=== PATIENT | female | born 1985 | race Caucasian/White ===

== ENCOUNTER 2018-05-16 12:47 | Inpatient (IN) | payer MEDICAID, OTHER ==
[2018-05-16] MEDS ORDERED: Iohexol 240 (50 ml) PO STA (13:39)
[2018-05-16] MEDS ORDERED: Sodium Chloride 0.9% 1,000 ML IV ONE (13:39)
--- NOTE | 2018-05-16 13:43 | C.PDOC ---
History Of Present Illness 32 year old female with PMHx of colitis, presents to the ER complaining of epigastric discomfort that began around 9:30am today. Around 11:00am pain began radiating to the right side, and patient noted bloating. No nausea, vomiting, or diarrhea. Patient has had a decreased appetite today. She denies any associated dysuria, frequency, incontinence, constipation, back pain, fever, or chills. LMP was 04/25/18, patient states it was normal. Time Seen by Provider: 05/16/18 13:29 Chief Complaint (Nursing): Abdominal Pain History Per: Patient History/Exam Limitations: no limitations Onset/Duration Of Symptoms: Hrs Current Symptoms Are (Timing): Still Present Location Of Pain/Discomfort: RUQ, Epigastric Abnormal Vaginal Bleeding: No Last Menstral Period: 04/25/18 Past Medical History Reviewed: Historical Data, Nursing Documentation, Vital Signs Vital Signs: Last Vital Signs Temp 98.4 F 05/16/18 14:42 Pulse 73 05/16/18 17:10 Resp 18 05/16/18 17:10 BP 120/74 05/16/18 17:10 Pulse Ox 100 05/16/18 17:26 - Medical History PMH: Arthritis, Back Problems, Gastritis Other PMH: Colitis Surgical History: No Surg Hx Family History: States: Unknown Family Hx - Social History Hx Tobacco Use: No Hx Alcohol Use: Yes Hx Substance Use: No - Immunization History Hx Tetanus Toxoid Vaccination: No Hx Influenza Vaccination: No Hx Pneumococcal Vaccination: No Review Of Systems Except As Marked, All Systems Reviewed And Found Negative. Constitutional: Negative for: Fever, Chills Gastrointestinal: Positive for: Abdominal Pain. Negative for: Nausea, Vomiting , Diarrhea, Constipation Genitourinary: Negative for: Dysuria, Frequency, Incontinence Physical Exam - Physical Exam Appears: Non-toxic, No Acute Distress Skin: Normal Color, Warm, Dry Head: Atraumatic, Normacephalic Eye(s): bilateral: Normal Inspection, PERRL, EOMI Nose: Normal Oral Mucosa: Moist Neck: Normal ROM, Supple Chest: Symmetrical Cardiovascular: Rhythm Regular, No Murmur Respiratory: Normal Breath Sounds, No Accessory Muscle Use, No Wheezing Gastrointestinal/Abdominal: Bowel Sounds (quiet), Tenderness (to the RUQ, epigastrium, and right flank/mid abdomen), Distention, No Guarding, No Rebound Back: Normal Inspection, No CVA Tenderness Extremity: Bilateral: Atraumatic, Normal Color And Temperature, Normal ROM Pulses: Left Dorsalis Pedis: Normal, Right Dorsalis Pedis: Normal Neurological/Psych: Oriented x3, Normal Speech ED Course And Treatment - Laboratory Results Result Diagrams: 05/16/18 14:18 05/16/18 14:18 Lab Interpretation: No Acute Changes Urine POC: Negative O2 Sat by Pulse Oximetry: 100 (RA) Pulse Ox Interpretation: Normal - CT Scan/US Abdomen and pelvis with contrast Other Rad Studies (CT/US): Read By Radiologist, Radiology Report Reviewed CT/US Interpretation: Accession No. : [id number]. Patient Name / ID : JESSU SHELTON / [id number]. Exam Date : 05/16/2018 16:36:22 ( Approved ). Study Comment : Sex / Age : F / 32Y. Creator : Mackenzie Rascon. Dictator : Tyler Rollins MD. Yard Goods Salesperson : Truck Service Technician : Tyler Rollins MD. Approver2 : Report Date : 05/16/2018 16:40:15. My Comment : . Date of service: 05/16/2018. PROCEDURE: CT Abdomen and Pelvis with contrast. HISTORY : abd pain. COMPARISON: CT scan of the abdomen and pelvis dated 06/02/2015. TECHNIQUE: Contrast dose: 100 mL Visipaque 320. Radiation dose: Total exam DLP = 685.0 mGy-cm. This CT exam was performed using one or more of the following dose reduction techniques: Automated exposure control, adjustment of the mA and/or kV according to patient size, and/or use of iterative reconstruction technique. FINDINGS: LOWER THORAX: Unremarkable. LIVER: Hepatic steatosis. No gross lesion or ductal dilatation. GALLBLADDER AND BILE DUCTS: Unremarkable. PANCREAS: Unremarkable. No gross lesion or ductal dilatation. SPLEEN: Unremarkable. ADRENALS: Unremarkable. No mass. KIDNEYS AND URETERS: Unremarkable. No hydronephrosis. No solid mass. VASCULATURE: Unremarkable. No aortic aneurysm. BOWEL: Cecum and terminal ileum noted in the left mid abdomen. No obstruction. No gross mural thickening. APPENDIX: Thickened appendix measuring up to 12 mm without surrounding inflammatory change. Seen in the left mid abdomen extending to the right and inferiorly ( series 3, images 64 -92). PERITONEUM: Unremarkable. No free fluid. No free air. LYMPH NODES: Unremarkable. No enlarged lymph nodes. BLADDER: Unremarkable. REPRODUCTIVE: Unremarkable. BONES: No acute fracture. OTHER FINDINGS: Navel ornamentation. IMPRESSION: Thickened appendix measuring up to 12 mm without surrounding inflammatory change. Findings are equivocal for acute appendicitis. Reevaluation Time: 17:18 Reassessment Condition: Unchanged (Additional Morphine given.) - Physician Consult Information Time Consulting Physician Contacted: 17:18 Physician Contacted: Franco Faith Medical Decision Making Medical Decision Making: Time: 13:39 Initial Plan: --Blood work --Urinalysis --IV fluids --Morphine 2 mg IVP --CT A/P with PO & IV contrast Disposition - Disposition Disposition: HOSPITALIZED Disposition Time: 17:44 Condition: STABLE - POA Present On Arrival: None - Clinical Impression Clinical Impression: Abdominal pain, Appendicitis - Scribe Statement The provider has reviewed the documentation as recorded by the Kelly Mcleod Provider Attestation: All medical record entries made by the Kelly were at my direction and personally dictated by me. I have reviewed the chart and agree that the record accurately reflects my personal performance of the history, physical exam, medical decision making, and the department course for this patient. I have also personally directed, reviewed, and agree with the discharge instructions and disposition.
[2018-05-16 14:31] LABS: BASO # 0.1 K/uL (0.0-0.2); BASO % 0.9 % (0.0-2.0); EOS # 0.2 K/uL (0.0-0.7); HEMOGLOBIN 12.5 g/dL (11.0-16.0); LYMPH % 27.4 % (20.0-40.0); MEAN CELL VOLUME 81.4 fL (81.0-99.0); MEAN CORPUSCULAR HEMOGLOBIN 27.5 pg (27.0-31.0); MEAN CORPUSCULAR HGB CONC 33.8 g/dL (33.0-37.0); MEAN PLATELET VOLUME 7.9 fL (7.2-11.7); MONO # 0.6 K/uL (0.0-0.8); MONO % 7.9 % (0.0-10.0); NEUT # 4.4 K/uL (1.8-7.0); NEUT % 60.8 % (50.0-75.0); RBC 4.55 Mil/uL (3.80-5.20); RED CELL DISTRIBUTION WIDTH 13.1 % (11.5-14.5); WHITE BLOOD COUNT 7.2 K/uL (4.8-10.8)
[2018-05-16] MEDS ORDERED: Iohexol 240 (50 ml) ONE (14:43)
[2018-05-16 14:46] LABS: ALB/GLOB RATIO 1.2 (1.0-2.1); ALBUMIN 4.3 g/dL (3.5-5.0); ALT/SGPT 29 U/L (9-52); AST/SGOT 19 U/L (14-36); BLOOD UREA NITROGEN 12 mg/dL (7-17); CALCIUM 8.8 mg/dl (8.6-10.4); GFR AFRICAN-AMERICAN > 60; GFR NON-AFRICAN AMERICAN > 60; LIPASE 110 U/L (23-300)
[2018-05-16 14:49] LABS: SQUAMOUS EPITHIAL 3 /hpf (0-5); URINE BILIRUBIN NEGATIVE (NEGATIVE); URINE BLOOD 2+ (NEGATIVE); URINE CLARITY Clear (Clear); URINE COLOR Yellow (YELLOW); URINE GLUCOSE (UA) NORMAL (Normal); URINE LEUKOCYTE ESTERASE 1+ Leu/uL (Negative); URINE PROTEIN NEGATIVE (NEGATIVE); URINE UROBILINOGEN NORMAL mg/dL (0.2-1.0)
[2018-05-16 14:50] LABS: HCG,QUALITATIVE URINE NEGATIVE (NEGATIVE)
[2018-05-16] MEDS ORDERED: Iodixanol 320 MG/ML 100 ML BOTTLE IV ONE (16:10)
--- NOTE | 2018-05-16 17:14 | CT ---
Date of service: 05/16/2018 PROCEDURE: CT Abdomen and Pelvis with contrast HISTORY: abd pain COMPARISON: CT scan of the abdomen and pelvis dated 06/02/2015. TECHNIQUE: Contrast dose: 100 mL Visipaque 320 Radiation dose: Total exam DLP = 685.0 mGy-cm. This CT exam was performed using one or more of the following dose reduction techniques: Automated exposure control, adjustment of the mA and/or kV according to patient size, and/or use of iterative reconstruction technique. FINDINGS: LOWER THORAX: Unremarkable. LIVER: Hepatic steatosis. No gross lesion or ductal dilatation. GALLBLADDER AND BILE DUCTS: Unremarkable. PANCREAS: Unremarkable. No gross lesion or ductal dilatation. SPLEEN: Unremarkable. ADRENALS: Unremarkable. No mass. KIDNEYS AND URETERS: Unremarkable. No hydronephrosis. No solid mass. VASCULATURE: Unremarkable. No aortic aneurysm. BOWEL: Cecum and terminal ileum noted in the left mid abdomen. No obstruction. No gross mural thickening. APPENDIX: Thickened appendix measuring up to 12 mm without surrounding inflammatory change. Seen in the left mid abdomen extending to the right and inferiorly (series 3, images 64 -92). PERITONEUM: Unremarkable. No free fluid. No free air. LYMPH NODES: Unremarkable. No enlarged lymph nodes. BLADDER: Unremarkable. REPRODUCTIVE: Unremarkable. BONES: No acute fracture. OTHER FINDINGS: Navel ornamentation. IMPRESSION: Thickened appendix measuring up to 12 mm without surrounding inflammatory change. Findings are equivocal for acute appendicitis.
[2018-05-16] MEDS ORDERED: HYDROmorphone 0.5 mg/0.5 ml ISec IVP PRN ×2 (18:06→20:02)
--- NOTE | 2018-05-16 18:07 | CP.PCM.HP ---
History of Present Illness - History of Present Illness History of Present Illness: H&P for Dr. Faith This is a 32 F with a PMH of colitis, who is presenting today with abdominal pain that was generalized this Am and localized to the RLQ and right back. She reports that she has never felt any pain like this before and that it is different from her colitis. She denies any fevers or chills at home. She denies any nause or vomiting or changes in bowel habits. PMH: See above PSH: Denies ALL: Denies Meds: Denies Social: Denies Vices Present on Admission - Present on Admission Any Indicators Present on Admission: No Review of Systems - Review of Systems All systems: reviewed and no additional remarkable complaints except - Constitutional Constitutional: Anorexia. absent: Chills, Fever - EENT Eyes: absent: Blurred Vision, Change in Vision Ears: absent: Ear Pain, Tinnitus - Cardiovascular Cardiovascular: absent: Chest Pain, Dyspnea - Respiratory Respiratory: absent: Cough, Dyspnea - Gastrointestinal Gastrointestinal: Abdominal Pain, Nausea. absent: Bloating, Diarrhea, Vomiting - Genitourinary Genitourinary: absent: Dysuria, Hematuria - Menstruation Additional comments: Last menses april 25 Past Patient History - Past Social History Smoking Status: Never Smoked - MUSCULOSKELETAL/RHEUMATOLOGICAL Hx Arthritis: Yes - GASTROINTESTINAL Hx Gastritis: Yes - PSYCHIATRIC Hx Substance Use: No - SURGICAL HISTORY Hx Surgeries: No - ANESTHESIA Hx Anesthesia: No Meds Allergies/Adverse Reactions: Allergies Allergy/AdvReac Type Severity Reaction Status Date / Time No Known Allergies Allergy Verified 05/16/18 13:24 Physical Exam - Constitutional Appears: Non-toxic, No Acute Distress - Head Exam Head Exam: ATRAUMATIC, NORMOCEPHALIC - Eye Exam Eye Exam: EOMI, Normal appearance - ENT Exam ENT Exam: Mucous Membranes Moist - Respiratory Exam Respiratory Exam: NORMAL BREATHING PATTERN - Cardiovascular Exam Cardiovascular Exam: +S1, +S2 - GI/Abdominal Exam GI & Abdominal Exam: Soft, Tenderness. absent: Distended, Firm, Guarding, Hernia Additional comments: + Rovsing - Extremities Exam Extremities exam: Positive for: normal inspection - Neurological Exam Neurological exam: Alert, Oriented x3 - Psychiatric Exam Psychiatric exam: Normal Affect, Normal Mood - Skin Skin Exam: Dry, Intact Results - Vital Signs Recent Vital Signs: Last Vital Signs Temp 98.4 F 05/16/18 14:42 Pulse 73 05/16/18 17:10 Resp 18 05/16/18 17:10 BP 120/74 05/16/18 17:10 Pulse Ox 100 05/16/18 17:44 - Labs Result Diagrams: 05/16/18 14:18 05/16/18 14:18 Labs: Laboratory Results - last 24 hr 05/16/18 05/16/18 05/16/18 14:18 14:18 14:37 WBC 7.2 RBC 4.55 Hgb 12.5 Hct 37.0 MCV 81.4 MCH 27.5 MCHC 33.8 RDW 13.1 Plt Count 266 MPV 7.9 Neut % (Auto) 60.8 Lymph % (Auto) 27.4 [place] % (Auto) 7.9 Eos % (Auto) 3.0 Baso % (Auto) 0.9 Neut # (Auto) 4.4 Lymph # (Auto) 2.0 [place] # (Auto) 0.6 Eos # (Auto) 0.2 Baso # (Auto) 0.1 Sodium 141 Potassium 3.9 Chloride 105 Carbon Dioxide 20 L Anion Gap 20 BUN 12 Creatinine 0.6 L Est GFR ( Amer) > 60 Est GFR (Non-Af Amer) > 60 Random Glucose 83 Calcium 8.8 Total Bilirubin 0.5 AST 19 ALT 29 Alkaline Phosphatase 58 Total Protein 7.9 Albumin 4.3 Globulin 3.5 Albumin/Globulin Ratio 1.2 Lipase 110 Urine Color Yellow Urine Clarity Clear Urine pH 5.0 Ur Specific [place] 1.027 Urine Protein Negative Urine Glucose (UA) Normal Urine Ketones Trace Urine Blood 2+ H Urine Nitrate Negative Urine Bilirubin Negative Urine Urobilinogen Normal Ur Leukocyte Esterase 1+ H Urine WBC (Auto) 12 H Urine RBC (Auto) 16 H Ur Squamous Epith Cells 3 Urine HCG, Qual Negative - Imaging and Cardiology CT scan - abdomen Status: Image reviewed by me, Report reviewed by me Assessment & Plan - Assessment and Plan (Free Text) Assessment: 32F with acute appendicitis NPO IVF OR tonight D/W Dr. Marcell Gonzalez PGY3
[2018-05-16 18:25] LABS: INR 1.2; PROTHROMBIN TIME 12.7 SECONDS (9.7-12.2)
[2018-05-16] MEDS ORDERED: Pneumococcal 23-Valent Vaccine IM ONE (18:51)
[2018-05-16] MEDS ORDERED: Bupivacaine-Epi 0.5%-1:200,000 PF Inj ONE (19:19)
[2018-05-16] MEDS ORDERED: Piperacillin/Tazobact 3.375 gm 100 ML IVPB ONE (19:19)
[2018-05-16] MEDS ORDERED: Propofol 10 mg/ml Inj (20 ML) ONE ×2 (19:33→20:32)
[2018-05-16] MEDS ORDERED: Succinylcholine Chloride 20 mg/ml Syr (5 ml) IV ONE (19:49)
[2018-05-16] MEDS: Piperacillin/Tazobact 3.375 GM in Sodium Chloride 100 ML IVPB SCH (20:23)
[2018-05-16] MEDS ORDERED: Neostigmine Methylsulfate 3mg/3ml Syringe IV ONE (20:56)
--- NOTE | 2018-05-16 21:53 | PCM.SURG1 ---
Surgeon's Initial Post Op Note - Surgeon's Notes Surgeon: Dr. Faith Film And Video Editor: Dr. Borges PGY3 Type of Anesthesia: General Endo Pre-Operative Diagnosis: acute appendicitis Operative Findings: see operative report Post-Operative Diagnosis: see operative report Operation Performed: laparoscopic appendectomy Specimen/Specimens Removed: appendix Estimated Blood Loss: EBL {In ML}: 5 Blood Products Given: N/A Drains Used: No Drains Post-Op Condition: Good Date of Surgery/Procedure: 05/16/18 Time of Surgery/Procedure: 20:40
[2018-05-16] MEDS ORDERED: Lactated Ringer's 1,000 ML IV SCH (22:30)
[2018-05-16] MEDS: Sodium Chloride 0.9% 1,000 ML IV SCH (23:13)
[2018-05-17] MEDS: Piperacillin/Tazobact 3.375 GM in Sodium Chloride 100 ML IVPB SCH ×2 (00:11→06:24)
[2018-05-17 01:40] VITALS: RESP 20
[2018-05-17] MEDS: Sodium Chloride 0.9% 1,000 ML IV SCH (06:15)
--- NOTE | 2018-05-17 07:17 | CP.PCM.DIS ---
Provider - Provider Date of Admission: 05/16/18 17:45 Attending physician: Franco Faith MD Time Spent in preparation of Discharge (in minutes): 45 Diagnosis - Discharge Diagnosis (1) Gynecologic infection Status: Acute Comment: suspected - treated with Ceftriaxone, doxycyline, and flagyl (2) Abdominal pain Status: Acute (3) Appendicitis Status: Acute Comment: s/p appendectomy Hospital Course - Lab Results Lab Results: Most Recent Lab Values WBC 7.2 K/uL (4.8-10.8) 05/16/18 14:18 RBC 4.55 Mil/uL (3.80-5.20) 05/16/18 14:18 Hgb 12.5 g/dL (11.0-16.0) 05/16/18 14:18 Hct 37.0 % (34.0-47.0) 05/16/18 14:18 MCV 81.4 fL (81.0-99.0) 05/16/18 14:18 MCH 27.5 pg (27.0-31.0) 05/16/18 14:18 MCHC 33.8 g/dL (33.0-37.0) 05/16/18 14:18 RDW 13.1 % (11.5-14.5) 05/16/18 14:18 Plt Count 266 K/uL (130-400) 05/16/18 14:18 MPV 7.9 fL (7.2-11.7) 05/16/18 14:18 Neut % (Auto) 60.8 % (50.0-75.0) 05/16/18 14:18 Lymph % (Auto) 27.4 % (20.0-40.0) 05/16/18 14:18 [place] % (Auto) 7.9 % (0.0-10.0) 05/16/18 14:18 Eos % (Auto) 3.0 % (0.0-4.0) 05/16/18 14:18 Baso % (Auto) 0.9 % (0.0-2.0) 05/16/18 14:18 Neut # (Auto) 4.4 K/uL (1.8-7.0) 05/16/18 14:18 Lymph # (Auto) 2.0 K/uL (1.0-4.3) 05/16/18 14:18 [place] # (Auto) 0.6 K/uL (0.0-0.8) 05/16/18 14:18 Eos # (Auto) 0.2 K/uL (0.0-0.7) 05/16/18 14:18 Baso # (Auto) 0.1 K/uL (0.0-0.2) 05/16/18 14:18 PT 12.7 SECONDS (9.7-12.2) H 05/16/18 18:13 INR 1.2 05/16/18 18:13 APTT 31 SECONDS (21-34) 05/16/18 18:13 Sodium 141 mmol/L (132-148) 05/16/18 14:18 Potassium 3.9 mmol/L (3.6-5.2) 05/16/18 14:18 Chloride 105 mmol/L (98-107) 05/16/18 14:18 Carbon Dioxide 20 mmol/L (22-30) L 05/16/18 14:18 Anion Gap 20 (10-20) 05/16/18 14:18 BUN 12 mg/dL (7-17) 05/16/18 14:18 Creatinine 0.6 mg/dL (0.7-1.2) L 05/16/18 14:18 Est GFR ( Amer) > 60 05/16/18 14:18 Est GFR (Non-Af Amer) > 60 05/16/18 14:18 Random Glucose 83 mg/dL (65-105) 05/16/18 14:18 Calcium 8.8 mg/dl (8.6-10.4) 05/16/18 14:18 Total Bilirubin 0.5 mg/dL (0.2-1.3) 05/16/18 14:18 AST 19 U/L (14-36) 05/16/18 14:18 ALT 29 U/L (9-52) 05/16/18 14:18 Alkaline Phosphatase 58 U/L (38-126) 05/16/18 14:18 Total Protein 7.9 g/dL (6.3-8.3) 05/16/18 14:18 Albumin 4.3 g/dL (3.5-5.0) 05/16/18 14:18 Globulin 3.5 gm/dL (2.2-3.9) 05/16/18 14:18 Albumin/Globulin Ratio 1.2 (1.0-2.1) 05/16/18 14:18 Lipase 110 U/L (23-300) 05/16/18 14:18 Urine Color Yellow (YELLOW) 05/16/18 14:37 Urine Clarity Clear (Clear) 05/16/18 14:37 Urine pH 5.0 (5.0-8.0) 05/16/18 14:37 Ur Specific [place] 1.027 (1.003-1.030) 05/16/18 14:37 Urine Protein Negative mg/dL (NEGATIVE) 05/16/18 14:37 Urine Glucose (UA) Normal mg/dL (Normal) 05/16/18 14:37 Urine Ketones Trace mg/dL (NEGATIVE) 05/16/18 14:37 Urine Blood 2+ (NEGATIVE) H 05/16/18 14:37 Urine Nitrate Negative (NEGATIVE) 05/16/18 14:37 Urine Bilirubin Negative (NEGATIVE) 05/16/18 14:37 Urine Urobilinogen Normal mg/dL (0.2-1.0) 05/16/18 14:37 Ur Leukocyte Esterase 1+ [place]/uL (Negative) H 05/16/18 14:37 Urine WBC (Auto) 12 /hpf (0-5) H 05/16/18 14:37 Urine RBC (Auto) 16 /hpf (0-3) H 05/16/18 14:37 Ur Squamous Epith Cells 3 /hpf (0-5) 05/16/18 14:37 Urine HCG, Qual Negative (NEGATIVE) 05/16/18 14:37 - Hospital Course Hospital Course: 32 F with a PMH of colitis, who presented with abdominal pain. She states tthat was generalized in the morning then localized to the RLQ radiating to right flank. She reports that she has never felt any pain like this before and that it is different from her colitis. She denies any fevers or chills at home. She denies any nausea or vomiting or changes in bowel habits. Ct scan was done in the ED and was concerning for acute appendicitis. Patient was taken to the OR for laparoscopic appendectomy. Patient tolerated the procedure well without any complications. During the procedure, some inflammation of fallopian tube and ovary was noted. The next day, Transvaginal US was found to be unremarkable. Ijeoma twas treated with Ceftriaxone 1 gm IM. She was given prescription for oral Doxy cyline and metronidazole for 14 days. She was instructed to follow up with [facility] within 1 week of discharge. On 05/17, patient was determined to be stable for discharge by Dr. Faith. She was given toradol PRN for pain and told to follow up within 1-2 weeks in his office. (This is a summary of the hospital course. Please refer to EMR for more details. ) Discharge Exam - Head Exam Head Exam: ATRAUMATIC, NORMOCEPHALIC - Eye Exam Eye Exam: EOMI, Normal appearance Pupil Exam: PERRL - ENT Exam ENT Exam: Mucous Membranes Moist - Respiratory Exam Respiratory Exam: NORMAL BREATHING PATTERN - Cardiovascular Exam Cardiovascular Exam: REGULAR RHYTHM - GI/Abdominal Exam GI & Abdominal Exam: Normal Bowel Sounds, Soft, Tenderness (mild in lower abdomen and near surgical sites). absent: Distended, Firm, Guarding, Rebound, Rigid - Extremities Exam Extremities exam: calf tenderness, normal capillary refill, pedal pulses present - Neurological Exam Neurological exam: Alert, CN II-XII Intact, Normal Gait, Oriented x3 - Psychiatric Exam Psychiatric exam: Normal Affect, Normal Mood - Skin Skin Exam: Dry, Intact, Normal Color, Warm Discharge Plan - Discharge Medications Prescriptions: Doxycycline Hyclate 100 mg PO BID #28 capsule Ketorolac Tromethamine [Toradol] 10 mg PO Q6H PRN #20 tab PRN Reason: Pain, Moderate (4-7) Metronidazole 500 mg PO Q8H #42 tablet - Follow Up Plan Condition: STABLE Disposition: HOME/ ROUTINE Instructions: Appendicitis, Adult (DC) Additional Instructions: Take Flagyl and Doxy as prescribed May take toradol as needed for pain Follow up with [facility] within 1 week Follow up wit Dr. Faith within 1-[address] Faith for any issues Referrals: Franco Faith MD [Staff Provider] -
[2018-05-17 07:29] LABS: BASO % 0.3 % (0.0-2.0); EOS % 0.6 % (0.0-4.0); HEMOGLOBIN 11.1 g/dL (11.0-16.0); LYMPH # 1.4 K/uL (1.0-4.3); LYMPH % 17.6 % (20.0-40.0); MEAN CELL VOLUME 81.8 fL (81.0-99.0); MEAN CORPUSCULAR HEMOGLOBIN 27.6 pg (27.0-31.0); MEAN CORPUSCULAR HGB CONC 33.7 g/dL (33.0-37.0); MONO # 0.7 K/uL (0.0-0.8); MONO % 9.1 % (0.0-10.0); NEUT # 5.6 K/uL (1.8-7.0); NEUT % 72.4 % (50.0-75.0); RBC 4.04 Mil/uL (3.80-5.20); RED CELL DISTRIBUTION WIDTH 13.3 % (11.5-14.5); WHITE BLOOD COUNT 7.8 K/uL (4.8-10.8)
[2018-05-17 07:31] LABS: BLOOD UREA NITROGEN 8 mg/dL (7-17); CALCIUM 7.9 mg/dl (8.6-10.4); GFR AFRICAN-AMERICAN > 60; GFR NON-AFRICAN AMERICAN > 60
--- NOTE | 2018-05-17 07:42 | OP ---
PROCEDURE DATE: 05/16/2018 SURGEON: Franco Faith MD PREOPERATIVE DIAGNOSIS: Acute appendicitis. POSTOPERATIVE DIAGNOSES: Acute bilateral salpingitis, normal appendix. PROCEDURE PERFORMED: Laparoscopic appendectomy. FINDINGS: There are no signs of any inflammation in the right lower quadrant. The cecum appeared to be normal. The appendix is passed through the mesentery which was very normal in consistency and in appearance. The appendix was worm-like structure, it is very small, contrast to the description on the CAT scan; however on the right side, there is tremendously large and red hyperemic tube with some adhesions in it. This appears to me as possible salpingitis as similar appearance of the left tube was noted. DESCRIPTION OF PROCEDURE: With the patient in a prone position, a Veress needle was inserted in the umbilicus through which CO2 was insufflated to about 15 mmHg. A 12 mm trocar was then inserted through which a laparoscope was inserted. Under direct vision, a 5-mm suprapubic port and a 5-mm left lower quadrant ports were inserted. The patient was placed in a Trendelenburg position and was turned over to the left side. The appendix was then inspected. It was searched for. In the beginning it was very difficulty to find because there were no signs of any acute inflammatory reaction in the area and what appeared to be an is actually the appendix which is very small in size. Because of these findings which is not consistent with the CAT scan findings, appendix was removed in a routine fashion but a search for a secondary diagnosis was made. Search in the pelvis was made and found that there is evidence of salpingitis bilaterally. Therefore after removing the appendix, CO2 allowed to escape from the peritoneal cavity. The trocar was removed. The wound was closed in a routine fashion. This patient will be placed on the antibiotics for few days and may be repeat the ultrasound vaginally. Franco Faith MD
--- NOTE | 2018-05-17 11:41 | US ---
Date of service: 05/17/2018 HISTORY: inflamed fallopian tubes COMPARISON: None available. TECHNIQUE: Grayscale, color Doppler and spectral evaluation the pelvis performed transabdominally and transvaginally FINDINGS: UTERUS: Measures 8.2 x 4.8 x 5.8 cm. Retroverted. Normal in size and appearance. No fibroid or other mass lesion seen. ENDOMETRIUM: Measures 10 mm in diameter. Unremarkable. CERVIX: No cervical abnormality identified. RIGHT OVARY: Measures 3.9 x 2.8 x 3.1 cm. Involuting corpus luteal follicle measuring 2.5 x 1.9 x 1.7 cm. Normal flow. LEFT OVARY: Measures 3.4 x 1.7 x 2.8 cm. No solid mass. Normal flow. FREE FLUID: Small amount of free fluid. OTHER FINDINGS: None. IMPRESSION: Unremarkable pelvic ultrasound.
[2018-05-17] MEDS: Oxycodone/Acetaminophen 5/325 mg Tab PO PRN ×2 (12:45→17:02)
[2018-05-17] MEDS ORDERED: cefTRIAXone 1 gm in Water For Injection 2.1 ML IM ONE (13:00)
[2018-05-17 16:09] VITALS: BP 119/78; PULSE 101; TEMP 98.8; O2SAT 97
[2018-05-19] MEDS ORDERED: Pneumococcal 23-Valent Vaccine IM ONE (10:00)
== END 2018-05-17 18:45 | disposition home or self-care (01) | DRG 343 ==
LOC: C.ER 12:47 → C.9E 17:45 → C.3T 17:45
PROVIDERS: ADMIT Surgery; ATTEND Surgery
PROC: 0DTJ4ZZ Resection of Appendix, Percutaneous Endoscopic Approach (ICD-10-PCS; principal; 2018-05-16 19:15)
DX: K35.80 Unspecified acute appendicitis (principal); N70.91 Salpingitis, unspecified

== ENCOUNTER 2018-09-10 20:39 | Emergency (ER) | payer MEDICAID, OTHER ==
[2018-09-10] MEDS ORDERED: Sodium Chloride 0.9% 1,000 ML IV ONE (21:35)
--- NOTE | 2018-09-10 21:44 | C.PDOC ---
History Of Present Illness 33 year old female presents to the ED for evaluation of epigastric abdominal pain which began yesterday. Patient also reports vomiting and diarrhea. Patient reports other family members are sick with the same symptoms. She denies fever, chills, and has no other complaints at this time. Time Seen by Provider: 09/10/18 21:29 Chief Complaint (Nursing): Abdominal Pain History Per: Patient History/Exam Limitations: no limitations Onset/Duration Of Symptoms: Hrs Current Symptoms Are (Timing): Still Present Location Of Pain/Discomfort: Epigastric Quality Of Discomfort: "Pain" Associated Symptoms: Vomiting, Diarrhea. denies: Fever, Chills Additional History Per: Patient Past Medical History Reviewed: Historical Data, Nursing Documentation, Vital Signs Vital Signs: Last Vital Signs Temp 98.6 F 09/10/18 21:09 Pulse 90 09/10/18 21:09 Resp 14 09/10/18 21:09 BP 119/72 09/10/18 21:09 Pulse Ox 98 09/10/18 21:09 - Medical History PMH: Arthritis, Back Problems, Gastritis Surgical History: No Surg Hx - [facility] Procedures RESECTION OF APPENDIX, PERCUTANEOUS ENDOSCOPIC APPROACH (05/16/18) Family History: States: Unknown Family Hx - Social History Hx Tobacco Use: No Hx Alcohol Use: Yes (occassional) Hx Substance Use: No - Immunization History Hx Tetanus Toxoid Vaccination: No Hx Influenza Vaccination: No Hx Pneumococcal Vaccination: No Review Of Systems Constitutional: Negative for: Fever, Chills Gastrointestinal: Positive for: Vomiting, Abdominal Pain (epigastric ), Diarrhea Physical Exam - Physical Exam Appears: Non-toxic, No Acute Distress Skin: Normal Color, Warm, Dry Head: Atraumatic, Normacephalic Eye(s): bilateral: Normal Inspection Oral Mucosa: Moist Neck: Supple Chest: Symmetrical, No Deformity, No Tenderness Cardiovascular: Rhythm Regular, No Murmur Respiratory: Normal Breath Sounds, No Rales, No Rhonchi, No Wheezing Gastrointestinal/Abdominal: Soft, Tenderness (epigastric ), No Guarding, No Rebound Extremity: Normal ROM, Capillary Refill (less than 2 seconds ) Neurological/Psych: Oriented x3, Normal Speech, Normal Cognition ED Course And Treatment - Laboratory Results Result Diagrams: 09/10/18 21:54 09/10/18 21:54 O2 Sat by Pulse Oximetry: 98 (on RA) Pulse Ox Interpretation: Normal Medical Decision Making Medical Decision Making: ro gastris coltiis pancreatits Progress: Bloodwork and urinalysis ordered and reviewed. Protonix IVP, Zofran IVP and IV Fluids given. ct shows gastroenteritis. in er with famil yenatalyber with similr. pain improved labs neg. pt feels comfortable for outpt trial of antibitoics return precautiosn advised. Disposition - Disposition Referrals: Duke Mcdonough MD [Staff Provider] - Disposition: HOME/ ROUTINE Disposition Time: 12:20 Condition: GOOD Additional Instructions: please see specialist. return to er with worsening symptoms or concerns. Prescriptions: Ciprofloxacin [Cipro] 500 mg PO BID #14 tab metroNIDAZOLE [Flagyl] 500 mg PO TID #21 tab Instructions: Bacterial Gastroenteritis, Child (DC), Viral Gastroenteritis, Adult (DC) Forms: [employer] ([place]) - Clinical Impression Clinical Impression: Abdominal pain, Gastroenteritis - Scribe Statement The provider has reviewed the documentation as recorded by the Scribe (Hellen Chavez) Provider Attestation: All medical record entries made by the Scribe were at my direction and personally dictated by me. I have reviewed the chart and agree that the record accurately reflects my personal performance of the history, physical exam, medical decision making, and the department course for this patient. I have also personally directed, reviewed, and agree with the discharge instructions and disposition.
[2018-09-10] MEDS ORDERED: Sodium Chloride 0.9% 1,000 ML ONE (21:58)
[2018-09-10 22:00] LABS: BASO % 0.2 % (0.0-2.0); EOS # 0.1 K/uL (0.0-0.7); EOS % 1.3 % (0.0-4.0); HEMOGLOBIN 12.3 g/dL (11.0-16.0); LYMPH # 0.6 K/uL (1.0-4.3); MEAN CELL VOLUME 80.9 fL (81.0-99.0); MEAN CORPUSCULAR HEMOGLOBIN 26.6 pg (27.0-31.0); MEAN CORPUSCULAR HGB CONC 32.9 g/dL (33.0-37.0); MEAN PLATELET VOLUME 7.8 fL (7.2-11.7); MONO # 0.5 K/uL (0.0-0.8); MONO % 6.8 % (0.0-10.0); NEUT # 6.2 K/uL (1.8-7.0); NEUT % 83.7 % (50.0-75.0); PLATELET COUNT 230 K/uL (130-400); RBC 4.61 Mil/uL (3.80-5.20); RED CELL DISTRIBUTION WIDTH 13.6 % (11.5-14.5); WHITE BLOOD COUNT 7.4 K/uL (4.8-10.8)
[2018-09-10 22:08] LABS: INR 1.1; PROTHROMBIN TIME 12.5 SECONDS (9.7-12.2)
[2018-09-10 22:12] LABS: ALB/GLOB RATIO 1.3 (1.0-2.1); ALBUMIN 4.3 g/dL (3.5-5.0); ALT/SGPT 19 U/L (9-52); AST/SGOT 20 U/L (14-36); BILIRUBIN,DIRECT 0.4 mg/dL (0.0-0.4); BLOOD UREA NITROGEN 17 mg/dL (7-17); CALCIUM 8.8 mg/dl (8.6-10.4); GFR NON-AFRICAN AMERICAN > 60; LIPASE 59 U/L (23-300)
[2018-09-10 22:42] LABS: BANDS 2 % (0-2); LYMPHOCYTE 8 % (20-40); MONOCYTE 5 % (0-10); NEUTROPHIL 85 % (50-75); PLATELET ESTIMATE NORMAL (NORMAL); TOTAL CELLS COUNTED 100
[2018-09-10 22:47] LABS: SQUAMOUS EPITHIAL 6 /hpf (0-5); URINE BACTERIA RARE (<OCC); URINE BILIRUBIN NEGATIVE (NEGATIVE); URINE BLOOD 1+ (NEGATIVE); URINE CLARITY Clear (Clear); URINE COLOR Yellow (YELLOW); URINE GLUCOSE (UA) NORMAL (Normal); URINE LEUKOCYTE ESTERASE 1+ Leu/uL (Negative); URINE PROTEIN 1+ mg/dL (NEGATIVE); URINE UROBILINOGEN NORMAL mg/dL (0.2-1.0)
[2018-09-10] MEDS ORDERED: Iodixanol 320 MG/ML 100 ML BOTTLE IV ONE (23:07)
[2018-09-11 00:26] VITALS: BP 100/63; PULSE 99; RESP 18; TEMP 99.4
--- NOTE | 2018-09-11 10:41 | CT ---
Date of service: 09/10/2018 PROCEDURE: CT Abdomen and Pelvis with contrast HISTORY: epigastric/upper abd pain COMPARISON: CT abdomen pelvis with contrast performed 05/16/18 TECHNIQUE: Contrast dose: 100 mL Visipaque IV Radiation dose: Total exam DLP = 701.81 mGy-cm. This CT exam was performed using one or more of the following dose reduction techniques: Automated exposure control, adjustment of the mA and/or kV according to patient size, and/or use of iterative reconstruction technique. FINDINGS: LOWER THORAX: Minimal bibasilar atelectasis. No visible focal consolidation, pleural effusion, or pneumothorax. LIVER: Unremarkable. GALLBLADDER AND BILE DUCTS: Unremarkable. PANCREAS: Unremarkable. SPLEEN: Unremarkable. ADRENALS: Unremarkable. KIDNEYS AND URETERS: The kidneys enhance symmetrically. No hydronephrosis or obstructing calculus identified. Too small to characterize 4 mm left renal hypodensity; statistically likely cyst. VASCULATURE: No aortic aneurysm. No atherosclerotic calcification or mural plaque present. BOWEL: Stomach is nondistended. Lack of oral contrast limits evaluation for bowel pathology. Bowel loops appear within normal limits of caliber without evidence of obstruction. Fluid within small and large bowel loops suggest diarrheal illness. Several small bowel loops demonstrate mild wall thickening, nonspecific. APPENDIX: The appendix is not identified. No secondary signs of acute appendicitis appreciated. PERITONEUM: No significant free fluid. No definite free air. LYMPH NODES: No bulky adenopathy identified. BLADDER: Unremarkable. REPRODUCTIVE: The uterus is present. 2.1 cm probable right ovarian cyst. BONES: No acute osseous abnormality is detected. OTHER FINDINGS: None. IMPRESSION: 2.1 cm probable right ovarian cyst. Suggest further evaluation with pelvic ultrasound if indicated. Fluid within small and large bowel loops suggest diarrheal illness. Correlate clinically. Several small bowel loops demonstrate mild wall thickening, nonspecific. Correlate clinically for enteritis. The appendix is not identified. No secondary signs of acute appendicitis. Preliminary impression was provided by [facility].
[2018-09-12 10:14] VITALS: O2SAT 98
== END 2018-09-11 00:35 | disposition home or self-care (01) ==
LOC: C.ER 20:39
DX: K52.9 Noninfective gastroenteritis and colitis, unspecified (principal)
CPT/HCPCS: 74177; 80053; 81001; 82248; 83690; 84703; 85025; 85610; 85730; 96361; 96374; 96375; 99284; C9113; J1885; J2405; J7030; Q9967